=== PATIENT | female | born 1955 | race Caucasian/White ===

== ENCOUNTER 2016-12-01 21:11 | Emergency (ER) | payer BC ==
[~2016-12-01] VITALS: Ht 154.9 cm; Wt 87.7 kg
[~2016-12-01 21:11] MED LIST: ALLEGRA-D 241 TABLET PO; ASPIRIN E.C.81 M1 PO; CELEBREX200 MG PO; COUMADIN PO; Cipro PO; Coumadin dosing per PO; DARVOCET-N 1001 EAC1 PO; FEOSOL325 MG PO; FIORICET WI1 CAPSULE PO; LASIX20 MG PO; LOPRESSOR12.5 MG PO; LOPRESSOR25 MG PO; LOSARTAN-HCTZ1 EACH PO; NAPROSYN500 MG PO; NORVASC2.5 MG PO; PERCOCET 5/31 TABLET PO; PRILOSEC20 MG PO; SENOKOT S,PE1 TABLET PO; Vicodin,Lortab 5/500 PO
[2016-12-01 22:46] LABS: HEMATOCRIT 39.5 % (36.0-46.0); MCH 29.3 PG (29.0-34.0); MCHC 32.2 G/DL (30.0-36.0); MCV 91.2 FL (83-99); MEAN PLAT.VOLUME 10.4 uM^3 (9.5-12.4); PLATELET COUNT 226 K/uL (156-360); RBC DIS.WIDTH-CV 13.2 % (11.8-14.6); RBC DIS.WIDTH-SD 44.9 % (39-53); RED BLOOD COUNT 4.33 M/uL (3.80-5.20); WHITE BLOOD COUNT 5.7 K/uL (4.1-10.2)
[2016-12-01 23:00] LABS: CHLORIDE 106 mEq/L (99-109); POTASSIUM 3.6 mEq/L (3.7-5.4); SODIUM 140 mEq/L (136-147)
[2016-12-01 23:02] LABS: GLUCOSE 110 mg/dL (70-99)
[2016-12-01 23:03] LABS: ANION GAP 10 MEQ/L (2-14)
[2016-12-01 23:06] LABS: GFR ESTIMATE (CALCULATED) > 59 mL/min/
[2016-12-01 23:07] LABS: UREA NITROGEN (BUN) 24 mg/dL (9-23)
[2016-12-01 23:08] LABS: URIC ACID 5.9 mg/dL (3.1-9.2)
[2016-12-02 00:02] VITALS: BP 152/88
[2016-12-02 06:28] LABS: C-REACTIVE PROTEIN 8.3 MG/L (0-10)
== END 2016-12-02 00:03 | disposition home or self-care (01) ==
LOC: EME 21:11
PROVIDERS: Physician Assistant
DX: M25.562 Pain in left knee (principal); M79.605 Pain in left leg; Z98.818 Other dental procedure status; I10 Essential (primary) hypertension; Z79.82 Long term (current) use of aspirin; Z87.891 Personal history of nicotine dependence
CPT/HCPCS: 80048; 84550; 85027; 86140; 93971; 99281; 99283

== ENCOUNTER 2017-03-22 11:36 | Emergency (ER) | payer OTHER, BC ==
[~2017-03-22] VITALS: Ht 154.9 cm; Wt 90.6 kg
[2017-03-22 13:47] VITALS: BP 133/91
== END 2017-03-22 13:48 | disposition home or self-care (01) ==
LOC: EME 11:36
DX: S09.8XXA Other specified injuries of head, initial encounter (principal); M54.2 Cervicalgia; W07.XXXA Fall from chair, initial encounter; M25.78 Osteophyte, vertebrae; M48.02 Spinal stenosis, cervical region; I10 Essential (primary) hypertension; Z79.82 Long term (current) use of aspirin; Z87.891 Personal history of nicotine dependence
CPT/HCPCS: 70450; 72125; 99281; 99283

== ENCOUNTER 2017-08-26 10:04 | Emergency (ER) | payer BC ==
[~2017-08-26] VITALS: Ht 154.9 cm; Wt 90.0 kg
[2017-08-26] MEDS ORDERED: TYLENOL WITH C1 EACH PO (13:30)
[2017-08-26 13:36] VITALS: BP 119/80
== END 2017-08-26 13:41 | disposition home or self-care (01) ==
LOC: EME 10:04
DX: M17.11 Unilateral primary osteoarthritis, right knee (principal); I10 Essential (primary) hypertension; Z87.891 Personal history of nicotine dependence; Z79.82 Long term (current) use of aspirin; Z88.0 Allergy status to penicillin
CPT/HCPCS: 73564; 93971; 99281; 99284